=== PATIENT | male | born 1995 | race Hispanic/Latino ===

== ENCOUNTER 2024-06-15 20:51 | Emergency (ER) | payer MEDICAID, OTHER ==
[2024-06-15] MEDS ORDERED: Boostrix 0.5 ML (Tdap) VIAL (>/=7 yrs of age) ONE (21:27)
[2024-06-15] MEDS ORDERED: Acetaminophen 500 MG TAB ONE ×2 (21:27→21:29)
[2024-06-15] MEDS ORDERED: traMADol HCl 50 MG TAB ONE (21:27)
== END 2024-06-15 22:26 | disposition home or self-care (01) ==
LOC: MADERS 20:51
DX: S93.411A Sprain of calcaneofibular ligament of right ankle, initial encounter (principal); S40.812A Abrasion of left upper arm, initial encounter; S40.811A Abrasion of right upper arm, initial encounter; F17.210 Nicotine dependence, cigarettes, uncomplicated; W17.89XA Other fall from one level to another, initial encounter; Z23 Encounter for immunization
CPT/HCPCS: 90715